=== PATIENT | female | born 1995 | race Caucasian/White ===

== ENCOUNTER 2016-05-23 12:24 | Emergency (ER) | payer BC, OTHER ==
[~2016-05-23] VITALS: Ht 182.9 cm; Wt 58.7 kg
[2016-05-23 12:36] VITALS: BP 110/71; PULSE 64; RESP 16; TEMP 97.6; O2SAT 99
[2016-05-23] MEDS ORDERED: PROG200C PO (12:52)
[2016-05-23 12:59] LABS: MEAN CORPUSCULAR HGB CONC 28.6 % (32.0-36.0)
--- NOTE | 2016-05-23 13:15 | PD ---
HPI Chief Complaint: Abnormal Results Time Seen by Provider: 12:46 Travel History International Travel<30 days: No Contact w/Intl Traveler<30days: No Traveled to known affect area: No History of Present Illness HPI Patient is a 21-year-old female who presents to the emergency department for abnormal lab results. The patient states she recently had a physical by her new physician, Dr. Jasso and was noted to have a hemoglobin of approximately 6. The patient was referred to the emergency department for further evaluation. The patient does have a history of iron deficiency, however , does not currently take iron. The patient denies heavy menstrual cycles, states she has irregular menstrual cycles, very few menstrual cycles, and is currently on progesterone and an attempt to regulate her menstrual cycles. The patient is tall and approximately 6 feet with slightly low body weight of 50.7 kg. She does believe that her abnormal menstrual cycle secondary to low estrogen from low body fat, according to her previous physicians. She does state she's had a workup including thyroid in the past which were unremarkable. She denies any rectal bleeding. She states she does take a multivitamin and eats a normal diet. PFSH Past Medical History Anemia: Yes Diminished Hearing: No Reproductive: Yes (irregular periods) Immunizations Current: Yes Tetanus Vaccination: Unknown Influenza Vaccination: Yes ?: Not LMP: on control one year ago Past Surgical History Surgical History: No Previous Surgery Social History Alcohol Use: No Tobacco Use: No Substance Use: No Allergies-Medications (Allergen,Severity, Reaction): Coded Allergies: No Known Allergies (Unverified , 05/23/16) Reported Meds & Prescriptions Reported Meds & Active Scripts Active Reported Progesterone Micronized 200 Mg Cap 200 Mg PO HS Review of Systems Except as stated in HPI: all other systems reviewed are Neg HENT: No: Lightheadedness Cardiovascular: No: Chest Pain or Discomfort, Dyspnea on exertion Respiratory: No: Shortness of Breath Gastrointestinal: No: Nausea, Vomiting, Abdominal Pain, Hematemesis, Hematochezia Genitourinary: No: Vaginal Bleeding Musculoskeletal: No: Weakness Neurologic: No: Weakness, Dizziness Physical Exam Narrative GENERAL: Awake, alert, pleasant 21-year-old female who appears her stated age and is in no acute respiratory distress. SKIN: Warm and dry. HEAD: Atraumatic. Normocephalic. EYES: Pupils equal and round. No scleral icterus. No injection or drainage. Mild pallor. ENT: No nasal bleeding or discharge. Mucous membranes pink and moist. NECK: Trachea midline. No JVD. CARDIOVASCULAR: Regular rate and rhythm. No murmur appreciated. Heart rate in the 60s. RESPIRATORY: No accessory muscle use. Clear to auscultation. Breath sounds equal bilaterally. GASTROINTESTINAL: Abdomen soft, non-tender, nondistended. MUSCULOSKELETAL: No obvious deformities. No clubbing. No cyanosis. No edema. NEUROLOGICAL: Awake and alert. No obvious cranial nerve deficits. Motor grossly within normal limits. Normal speech. PSYCHIATRIC: Appropriate mood and affect; insight and judgment normal. Data Data Last Documented VS Vital Signs Date Time Temp Pulse Resp B/P Pulse Ox O2 Delivery O2 Flow Rate FiO2 05/23/16 14:00 58 16 95/57 100 Room Air 05/23/16 12:36 97.6 Orders Type And Screen (05/23/16 12:58) Complete Blood Count With Diff (05/23/16 12:58) Basic Metabolic Panel (Bmp) (05/23/16 12:58) Iron/Tibc Profile (05/23/16 12:58) Labs Laboratory Tests Test 05/23/16 13:05 White Blood Count 4.5 TH/MM3 Red Blood Count 3.38 MIL/MM3 Hemoglobin 6.3 GM/DL Hematocrit 22.2 % Mean Corpuscular Volume 65.5 FL Mean Corpuscular Hemoglobin 18.7 PG Mean Corpuscular Hemoglobin 28.6 % Concent Red Cell Distribution Width 20.4 % Platelet Count 223 TH/MM3 Mean Platelet Volume 7.8 FL Neutrophils (%) (Auto) 58.3 % Lymphocytes (%) (Auto) 26.4 % Monocytes (%) (Auto) 13.5 % Eosinophils (%) (Auto) 0.6 % Basophils (%) (Auto) 1.2 % Neutrophils # (Auto) 2.6 TH/MM3 Lymphocytes # (Auto) 1.2 TH/MM3 Monocytes # (Auto) 0.6 TH/MM3 Eosinophils # (Auto) 0.0 TH/MM3 Basophils # (Auto) 0.1 TH/MM3 CBC Comment AUTO DIFF Differential Comment AUTO DIFF CONFIRMED Platelet Estimate NORMAL Platelet Morphology Comment NORMAL Tear Drop Cells 1+ Ovalocytes 1+ Johnson-Tunnelhill Bodies PRESENT Rouleau PRESENT Keratocytes OCC Sodium Level 143 MEQ/L Potassium Level 4.6 MEQ/L Chloride Level 107 MEQ/L Carbon Dioxide Level 28.9 MEQ/L Anion Gap 7 MEQ/L Blood Urea Nitrogen 12 MG/DL Creatinine 0.66 MG/DL Estimat Glomerular Filtration 113 ML/MIN Rate Random Glucose 98 MG/DL Calcium Level 8.7 MG/DL Iron Level LESS THAN 5 MCG/DL Total Iron Binding Capacity 616 MCG/DL Percent Iron Saturation 0.8 % MDM Medical Decision Making Medical Screen Exam Complete: Yes Emergency Medical Condition: Yes Medical Record Reviewed: Yes Interpretation(s) Laboratory Tests Test 05/23/16 13:05 White Blood Count 4.5 TH/MM3 Red Blood Count 3.38 MIL/MM3 Hemoglobin 6.3 GM/DL Hematocrit 22.2 % Mean Corpuscular Volume 65.5 FL Mean Corpuscular Hemoglobin 18.7 PG Mean Corpuscular Hemoglobin 28.6 % Concent Red Cell Distribution Width 20.4 % Platelet Count 223 TH/MM3 Mean Platelet Volume 7.8 FL Neutrophils (%) (Auto) 58.3 % Lymphocytes (%) (Auto) 26.4 % Monocytes (%) (Auto) 13.5 % Eosinophils (%) (Auto) 0.6 % Basophils (%) (Auto) 1.2 % Neutrophils # (Auto) 2.6 TH/MM3 Lymphocytes # (Auto) 1.2 TH/MM3 Monocytes # (Auto) 0.6 TH/MM3 Eosinophils # (Auto) 0.0 TH/MM3 Basophils # (Auto) 0.1 TH/MM3 CBC Comment AUTO DIFF Differential Comment AUTO DIFF CONFIRMED Platelet Estimate NORMAL Platelet Morphology Comment NORMAL Tear Drop Cells 1+ Ovalocytes 1+ Johnson-Tunnelhill Bodies PRESENT Rouleau PRESENT Keratocytes OCC Sodium Level 143 MEQ/L Potassium Level 4.6 MEQ/L Chloride Level 107 MEQ/L Carbon Dioxide Level 28.9 MEQ/L Anion Gap 7 MEQ/L Blood Urea Nitrogen 12 MG/DL Creatinine 0.66 MG/DL Estimat Glomerular Filtration 113 ML/MIN Rate Random Glucose 98 MG/DL Calcium Level 8.7 MG/DL Iron Level LESS THAN 5 MCG/DL Total Iron Binding Capacity 616 MCG/DL Percent Iron Saturation 0.8 % Differential Diagnosis Differential diagnosis includes iron deficiency anemia, macrocytic anemia, microcytic anemia, hypothyroidism, GI bleed, menorrhagia. Narrative Course IV was established, labs are drawn and sent, and the patient was placed on cardiac telemetry monitoring and continuous pulse oximetry monitoring. CBC does reveal anemia 6.3 with MCV low at 65, most likely microcytic anemia secondary to iron deficiency. The patient is currently symptomatic, no hypotension, tachycardia, or exertional symptoms. As patient's hemoglobin is about 6 and the patient is asymptomatic with no obvious bleeding, is not currently on anticoagulants, I will not immediately transfuse. I do discussion with the patient regarding transfusing her not transfusion, she is comfortable with no transfusion at this time as she is asymptomatic. I am profile was sent to lab, airflow, patient will be started on iron. The patient's iron was low, less than 5, TIBC was high, I percentage was low, consistent with iron deficiency anemia. The patient is currently asymptomatic, will not transfuse, however, I will place patient on iron. She is advised to drink plenty of fluids and to monitor 5 or intake as she may have constipation with iron intake. She is also advised to have repeat labs with her primary physician and return if she develops symptoms. Patient agrees and understands. She will be provided a copy of her labs at discharge. Diagnosis Primary Impression: Microcytic anemia Patient Instructions: General Instructions Additional Instructions: Iron as directed. Please provide a patient a copy of her labs at discharge. Follow-up with your primary physician for repeat labs. Return if he develops symptoms such as shortness of breath with exertion, lightheadedness, dizziness, lethargy, or malaise. Also return if you have any significant bleeding. Med/Other Pt SpecificInfo: Prescription(s) given Scripts Ferrous Sulfate (Iron)325 Mg Uho980 Mg PO TIDPC 30 Days Ref 3 Prov:Albert Anthony MD 05/23/16 Disposition: 01 DISCHARGE HOME Condition: Stable Albert Anthony MD May 23, 2016 13:15
[2016-05-23 13:18] LABS: AUTOMATED NEUTROPHIL # 2.6 TH/MM3 (1.8-7.7); BASOPHIL # 0.1 TH/MM3 (0-0.2); BASOPHIL % 1.2 % (0.0-2.0); EOSINOPHIL % 0.6 % (0.0-4.0); HEMATOCRIT 22.2 % (35.0-46.0); LYMPH % 26.4 % (9.0-44.0); LYMPHOCYTE # 1.2 TH/MM3 (1.0-4.8); MEAN CELL VOLUME 65.5 FL (80.0-100.0); MEAN CORPUSCULAR HEMOGLOBIN 18.7 PG (27.0-34.0); MONO % 13.5 % (0.0-8.0); NEUT % 58.3 % (16.0-70.0); PLATELET COUNT 223 TH/MM3 (150-450); RED BLOOD COUNT 3.38 MIL/MM3 (4.00-5.30); RED CELL DISTRIBUTION WIDTH 20.4 % (11.6-17.2); WHITE BLOOD COUNT 4.5 TH/MM3 (4.0-11.0)
[2016-05-23 13:20] LABS: HEMO FLAGS AUTO DIFF
[2016-05-23 13:27] LABS: CHLORIDE 107 MEQ/L (98-107); POTASSIUM 4.6 MEQ/L (3.5-5.1); SODIUM (NA) 143 MEQ/L (136-145)
[2016-05-23 13:30] LABS: ANION GAP 7 MEQ/L (5-15); BICARBONATE 28.9 MEQ/L (21.0-32.0); BLOOD UREA NITROGEN 12 MG/DL (7-18)
[2016-05-23 13:34] LABS: GLOMERULAR FILTRATION RATE 113 ML/MIN (>89)
[2016-05-23 13:40] LABS: KERATOCYTES OCC (NORMAL); OVALOCYTES 1+ (NORMAL); TEARDROP RBCS 1+ (NORMAL)
[2016-05-23 13:41] LABS: HOWELL-JOLLY BODIES PRESENT (NONE SEEN); PLATELET ESTIMATE SMEAR NORMAL (NORMAL); PLATELET MORPHOLOGY NORMAL (NORMAL); ROULEAUX PRESENT (NORMAL); SCAN/DIFF AUTO DIFF CONFIRMED
[2016-05-23 14:00] VITALS: BP 95/57; PULSE 58; RESP 16; O2SAT 100
[2016-05-23 14:32] LABS: TRANSFERRIN IRON PROFILE 440 MG/DL (200-360)
[2016-05-23] MEDS ORDERED: FERR1TAB36 PO (14:44)
== END 2016-05-23 15:07 | disposition home or self-care (01) ==
LOC: PHED 12:24
DX: D50.9 Iron deficiency anemia, unspecified (principal); D64.9 Anemia, unspecified; N92.6 Irregular menstruation, unspecified
CPT/HCPCS: 80048; 83540; 83550; 85025; 86850; 86900; 86901; 99283

== ENCOUNTER 2017-07-28 21:35 | Emergency (ER) | payer OTHER ==
[~2017-07-28] VITALS: Ht 182.9 cm; Wt 63.7 kg
[~2017-07-28 21:35] MED LIST: FERR1TAB36 PO; PROG200C PO
[2017-07-28 21:40] VITALS: BP 122/53; PULSE 59; RESP 14; TEMP 98.6; O2SAT 100
[2017-07-28] MEDS ORDERED: PROPARACAINE HCL 0.5% OPHT SOLN 15 ML BTL RIGHT EYE ONE (21:45)
[2017-07-28] MEDS ORDERED: BIRTH CONTROL PILLS PO (21:53)
[2017-07-28] MEDS ORDERED: ERYTOIN10 RIGHT EYE (21:59)
--- NOTE | 2017-07-28 22:07 | PD ---
HPI Chief Complaint: Eye Problems/Injury Time Seen by Provider: 21:44 Travel History International Travel<30 days: No Contact w/Intl Traveler<30days: No Traveled to known affect area: No History of Present Illness HPI 22-year-old female that presents to the ED for evaluation of right eye pain. Patient has had this for about 3 days now. No injury or trauma. Per patient she woke up with this. Per patient the right eye appears to be red. She states having pain on it which is 3 out of 10. Denies any blurry vision or double vision. Most of the erythema is on the medial aspect of the eye. No tearing or discharge. No contact use or glasses. Denies any other medical symptoms. No medical history. No allergies to medication. Has not taken anything for this. Per patient she was mainly concerned because the symptoms are not improving she was concerned. PFSH Past Medical History Medical History: Denies Significant Hx Anemia: Yes Diminished Hearing: No Reproductive: Yes (irregular periods) Immunizations Current: Yes Tetanus Vaccination: Unknown Influenza Vaccination: No ?: Not LMP: 07/14/17 Past Surgical History Surgical History: No Previous Surgery Social History Alcohol Use: No Tobacco Use: No Substance Use: No Allergies-Medications (Allergen,Severity, Reaction): Coded Allergies: No Known Allergies (Unverified Adverse Reaction, Unknown, 07/28/17) Reported Meds & Prescriptions Reported Meds & Active Scripts Active Erythromycin Opth Oint 5 Mg/Gm Oint 1 Applic RIGHT EYE QID Reported [ Control Pills] 1 Tab PO DAILY Review of Systems Except as stated in HPI: all other systems reviewed are Neg Physical Exam Narrative GENERAL: SKIN: Warm and dry. HEAD: Atraumatic. Normocephalic. EYES: Pupils equal and round 4 mms reactive to light and accommodation. No scleral icterus. No injection or drainage. EOM intact bilaterally. Peripheral vision intact bilaterally. Ophthalmic examination no sign of papilledema or vessel disease. Patient has erythema and conjunctival irritation on the medial aspect of the right eye. Fluorescein stain revealed no sign of foreign body or abrasion on the eye or the eyelids themselves. Allergies themselves appear to be intact. IOPs are 12, 13 and 12. ENT: No nasal bleeding or discharge. Mucous membranes pink and moist. NECK: Trachea midline. No JVD. CARDIOVASCULAR: Regular rate and rhythm. RESPIRATORY: No accessory muscle use. Clear to auscultation. Breath sounds equal bilaterally. GASTROINTESTINAL: Abdomen soft, non-tender, nondistended. Hepatic and splenic margins not palpable. MUSCULOSKELETAL: Extremities without clubbing, cyanosis, or edema. No obvious deformities. NEUROLOGICAL: Awake and alert. No obvious cranial nerve deficits. Motor grossly within normal limits. Five out of 5 muscle strength in the arms and legs. Normal speech. PSYCHIATRIC: Appropriate mood and affect; insight and judgment normal. Data Data Last Documented VS Vital Signs Date Time Temp Pulse Resp B/P (MAP) Pulse Ox O2 Delivery O2 Flow Rate FiO2 07/28/17 21:40 98.6 59 14 122/53 (76) 100 Orders Orders Proparacaine 0.5% Opth Soln (Alcaine 0.5 (07/28/17 21:45) Ed Discharge Order (07/28/17 21:58) [facility] Medical Decision Making Medical Screen Exam Complete: Yes Emergency Medical Condition: Yes Medical Record Reviewed: Yes Differential Diagnosis Conjunctivitis versus glaucoma versus foreign body versus abrasion versus conjunctival hemorrhage Narrative Course 22-year-old female that presents to the ED for evaluation of right eye pain and redness. Patient was properly examined and was found to have signs and symptoms of unclear etiology at this time. She doesn't really have symptoms of conjunctivitis with discharge and tearing but she does have pain and redness on the time. Only in the conjunctiva. Tests here did not show any sign of foreign body and patient appears to have normal pressures in the eye. Could be related to irritation. Per patient the pain feels like pressure. This time I recommend trying erythromycin ointment to cover for possible conjunctivitis. Close follow with packager and strapper. See ED worsening symptoms. Follow up with PCP. Diagnosis Primary Impression: Conjunctivitis Qualified Codes: B30.9 - Viral conjunctivitis, unspecified Additional Impression: Eye irritation Referrals: Gisella Garcia MDexhibitions and collections manager call for appointment Patient Instructions: General Instructions Departure Forms: Tests/Procedures Additional Instructions: Follow with packager and strapper if symptoms not improve in the next couple of days. See ED worsening symptoms. You can take Motrin or Tylenol for pain. Benadryl for itch. Med/Other Pt SpecificInfo: Prescription(s) given Scripts Erythromycin Opth Oint (Erythromycin Opth Oint) 5 Mg/Gm Oint 1 APPLIC RIGHT EYE QID for Infection, #1 TUBE 0 Refills Prov: Conrad Collado MD 07/28/17 Disposition: 01 DISCHARGE HOME Condition: Alex Menjivar Jul 28, 2017 22:07
== END 2017-07-28 22:12 | disposition home or self-care (01) ==
LOC: PHEFT 21:35
DX: B30.9 Viral conjunctivitis, unspecified (principal)
CPT/HCPCS: 99283